=== PATIENT | male | born 1960 | race Caucasian/White ===

== ENCOUNTER 2018-06-19 15:13 | Emergency (ER) | payer SELFPAY ==
[~2018-06-19] VITALS: Ht 177.8 cm; Wt 82.6 kg
[2018-06-19 15:25] VITALS: BP 160/89
[2018-06-19 16:30] LABS: BILIRUBIN,URINE NEGATIVE (NEG); CLARITY,URINE CLEAR; COLOR,URINE YELLOW; NITRITE,URINE NEGATIVE (NEG); PH,URINE 6.5; PROTEIN,URINE NEGATIVE (NEG-TRACE)
[2018-06-19 16:40] LABS: BACTERIA,URINE 0 /HPF (0-FEW); RBC,URINE OCC /HPF (0-2); WBC,URINE OCC /HPF (0-4)
--- NOTE | 2018-06-19 16:42 | RAD ---
PELVIS LIMITED OR FOLLOW UP History: Bilateral hernias Comparison: None. Findings: Multiple sonographic images of the pelvis are submitted. Per technologist, hernia defect was not confidently identified although there was bulging of soft tissues in this region. Impression: 1. Hernia defect was not confidently identified per technologist although bulging of the soft tissues in this region. If there is persistent concern for hernia, CT evaluation could be beneficial. Electronically signed by: Valerio Hawk MD (06/19/2018 4:38 PM) [id number]
--- NOTE | 2018-06-19 16:55 | PHYS DOC ---
Past Medical History Past Medical History: No Pertinent History Past Surgical History: No Surgical History Alcohol Use: Occasionally Drug Use: None Adult General Chief Complaint Chief Complaint: GROIN PAIN HPI HPI Patient is a 58 year old male who presents with bilateral hernias. The patient states that he has had a right hernia for several years. He states that the left hernia is newer, and every time he stands up it pops out. The patient can easily reduce it, but it is painful. The patient was post with surgical follow- up in the surgery but recently moved to [place]. He had already reduce the left hernia before he came into the room. He states that the right is always pouched out but it is not painful. Review of Systems Review of Systems Constitutional: Denies fever or chills [] Eyes: Denies change in visual acuity, redness, or eye pain [] HENT: Denies nasal congestion or sore throat [] Respiratory: Denies cough or shortness of breath [] Cardiovascular: No additional information not addressed in HPI [] GI: See history of present illness : Denies dysuria or hematuria [] Musculoskeletal: Denies back pain or joint pain [] Integument: Denies rash or skin lesions [] Neurologic: Denies headache, focal weakness or sensory changes [] Endocrine: Denies polyuria or polydipsia [] All other systems were reviewed and found to be within normal limits, except as documented in this note. Physical Exam Physical Exam Constitutional: Well developed, well nourished, no acute distress, non-toxic appearance. [] HENT: Normocephalic, atraumatic, bilateral external ears normal, oropharynx moist, no oral exudates, nose normal. [] Eyes: PERRLA, EOMI, conjunctiva normal, no discharge. [] Neck: Normal range of motion, no tenderness, supple, no stridor. [] Cardiovascular:Heart rate regular rhythm, no murmur [] Lungs & Thorax: Bilateral breath sounds clear to auscultation [] Abdomen: Bowel sounds normal, soft, no tenderness, and the right hernia is nontender and non-reducible with a soft mass noted to the right pubis, the left hernia was reduced and is not noted on exam Skin: Warm, dry, no erythema, no rash. [] Neurologic: Alert and oriented X 3, normal motor function, normal sensory function, no focal deficits noted. [] Psychologic: Affect normal, judgement normal, mood normal. [] Current Patient Data Vital Signs Vital Signs Date Time Temp Pulse Resp B/P (MAP) Pulse Ox O2 Delivery O2 Flow Rate FiO2 06/19/18 15:25 97.8 74 18 160/89 (112) 98 97.8 Lab Values Laboratory Tests Test 06/19/18 16:15 Urine Collection Type Unknown Urine Color Yellow Urine Clarity Clear Urine pH 6.5 Urine Specific Harvey 1.020 Urine Protein Negative mg/dL (NEG-TRACE) Urine Glucose (UA) Negative mg/dL (NEG) Urine Ketones (Stick) Negative mg/dL (NEG) Urine Blood Negative (NEG) Urine Nitrite Negative (NEG) Urine Bilirubin Negative (NEG) Urine Urobilinogen Dipstick 1.0 mg/dL (0.2 mg/dL) Urine Leukocyte Esterase Negative (NEG) Urine RBC Occ /HPF (0-2) Urine WBC Occ /HPF (0-4) Urine Bacteria 0 /HPF (0-FEW) Urine Mucus Marked /LPF EKG EKG [] Radiology/Procedures Radiology/Procedures PATIENT: ANTHONY RUTHERFORD ACCOUNT: [id number] : 1960 LOCATION: ER AGE: 58 SEX: M EXAM STATUS: REG ER ORD. PHYSICIAN: MINDY GONCALVES APRN REASON: evaluate bilateral hernias PROCEDURE: PELVIS LIMITED OR FOLLOW UP PELVIS LIMITED OR FOLLOW UP History: Bilateral hernias Comparison: None. Findings: Multiple sonographic images of the pelvis are submitted. Per technologist, hernia defect was not confidently identified although there was bulging of soft tissues in this region. Impression: 1. Hernia defect was not confidently identified per technologist although bulging of the soft tissues in this region. If there is persistent concern for hernia, CT evaluation could be beneficial. Electronically signed by: Hipolito Muñiz MD (06/19/2018 4:38 PM) [id number] DICTATED and SIGNED BY: HIPOLITO MUÑIZ MD DATE: 06/19/18 4211 Course & Med Decision Making Course & Med Decision Making Pertinent Labs and Imaging studies reviewed. (See chart for details) [] Dragon Disclaimer Dragon Disclaimer This electronic medical record was generated, in whole or in part, using a voice recognition dictation system. Departure Departure Impression: Primary Impression: Hernia Disposition: 01 HOME, SELF-CARE Condition: STABLE Referrals: NO PCP (PCP) MARIA L ROSADO MD Patient Instructions: Hernia Additional Instructions: Follow-up with surgery for treatment of your bilateral hernias. If your hernia pouches and you are unable to reduce it return to the emergency department. MINDY GONCALVES SOLAR ENERGY SPECIALIST Jun 19, 2018 16:55
== END 2018-06-19 17:28 | disposition home or self-care (01) ==
LOC: ER 15:13
DX: K46.9 Unspecified abdominal hernia without obstruction or gangrene (principal)
CPT/HCPCS: 76857; 81001; 99285-25

== ENCOUNTER 2018-10-01 06:36 | Day surgery (SDC) | payer SELFPAY ==
[~2018-10-01] VITALS: Ht 177.8 cm; Wt 87.0 kg
[2018-10-01] MEDS ORDERED: BUPIVAC MPF-EPI 0.5%-1:200000 30 ML VIAL. ONE (06:57)
[2018-10-01] MEDS ORDERED: IV RINGERS,LACTATED 1000ML 1,000 ML IV SCH ×2 (07:00)
[2018-10-01] MEDS ORDERED: PROCHLORPERAZINE 10 MG/2 ML VIAL. IV PRN ×2 (07:00)
[2018-10-01] MEDS ORDERED: LIDOCAINE 1% PF 2 ML VIAL. ID PRN ×2 (07:00)
[2018-10-01] MEDS ORDERED: HYDROmorphone 2 MG/ML VIAL IV PRN ×2 (07:00)
[2018-10-01] MEDS ORDERED: MORPHINE SULFATE 2 MG/ML VIAL. IV PRN ×2 (07:00)
[2018-10-01] MEDS ORDERED: fentaNYL PF VIAL 100 MCG/2 ML VIAL IV PRN ×3 (07:00)
[2018-10-01] MEDS ORDERED: ONDANSETRON PF 4 MG/2 ML VIAL. IV PRN ×2 (07:00)
[2018-10-01] MEDS ORDERED: ROCURONIUM 50 MG/5 ML VIAL. ONE (07:25)
[2018-10-01] MEDS ORDERED: fentaNYL PF VIAL 100 MCG/2 ML VIAL ONE (07:25)
[2018-10-01] MEDS ORDERED: ONDANSETRON PF 4 MG/2 ML VIAL. ONE (07:25)
[2018-10-01] MEDS ORDERED: PROPOFOL 20 ML IV ONE (07:25)
[2018-10-01] MEDS ORDERED: LIDOCAINE 2% PF 5 ML VIAL. ONE (07:25)
[2018-10-01] MEDS ORDERED: DEXAMETHASONE SOD PHOS 20 MG/5 ML VIAL. ONE (07:26)
[2018-10-01] MEDS ORDERED: NEOSTIGMINE 10 MG/10 ML VIAL. ONE (07:26)
[2018-10-01] MEDS ORDERED: MIDAZOLAM HCL/PF 2 MG/2 ML VIAL. ONE (07:26)
[2018-10-01] MEDS ORDERED: KETOROLAC 30 MG/ML INJ FOR OR. INJ ONE (07:26)
[2018-10-01] MEDS ORDERED: GLYCOPYRROLATE 1 MG/5 ML VIAL. ONE (07:28)
[2018-10-01] MEDS ORDERED: FAMOTIDINE 20 MG/2 ML VIAL ONE (08:25)
--- NOTE | 2018-10-01 09:01 | PDOC4 ---
Operative Note Operative Note Date: 10/01/2018 Preoperative diagnosis: Bilateral inguinal hernias Postoperative diagnosis: Same Procedure: Robotic-assisted laparoscopic bilateral inguinal hernia repairs with mesh Surgeon: Ernst Specimen: None Dictation: Patient is 58-year-old gentleman with bilateral inguinal hernias comes in for repair. Procedure of robotic-assisted laparoscopic bilateral inguinal repair with mesh was explained to the patient in detail risk benefits were also discussed including bleeding infection injury to intra-abdominal contents possibly necessitate further open operations. Alternatives to this procedure also discussed with the patient is seemed to understand gave both verbal and written consent to the procedure performed. Patient was taken to the operating room placed in supine position general anesthesia was initiated once patient was sleep and intubated he was placed in low lithotomy position and his abdomen was prepped and draped usual sterile fashion using ChloraPrep and area just above the umbilicus was injected with quarter percent Marcaine with epinephrine incision was made with a blade scalpel there is needle was placed within the abdomen. Pneumoperitoneum once this was complete 8mm da Austin port was placed and a 30 da Austin camera was placed within the abdomen which was inspected was noted. 2 hernias right much larger than the left both were incarcerated with bowel. A 8mm da Austin port was placed in the right mid abdomen and one in the mid abdomen the da Austin robot was then brought in and docked all port sites surgeon went to the robotic console using a grasper and Endo Linda scissors the peritoneum was incised on the right side and a window peritoneum was propagated inferiorly with sharp and blunt dissection reducing the hernia sac and contents. A large Bard 3-D max mesh for the right side was placed over the hernia defect and the peritoneum was closed with a running 20 absorbable V lock suture. Tensions are then turned to the left side similarly the peritoneum was incised and window propagated inferiorly with blunt and sharp dissection reducing the hernia sac and contents. A large Bard 3-D max mesh for the left side was placed over the hernia defect and the peritoneum was closed with a running 20V lock absorbable suture. The da Austin robot was undocked all ports removed the pneumoperitoneum was reduced and the port sites were all closed with 40 septic Monocryl Mastisol Steri-Strips and island dressings were applied. Patient was awakened and expanded in operating room taken to recovery in stable condition all sponge instrument needle counts listed as correct estimated blood loss 5 mL MARIA L ROSADO MD Oct 01, 2018 09:01
--- NOTE | 2018-10-01 09:02 | DISCH ---
DISCHARGE INSTRUCTIONS Condition on Discharge Condition on Discharge: Stable Activity After Discharge Activity Instructions for Disc: Avoid exertion Other activity instructions: no lifting more 20 pounds for 2 weeks Diet after Discharge Diet after Discharge: Regular Wound Incision Care Other wound/incision instructi: May shower in 24 hours Contacting the after DC Call your doctor for: If your condition worsens Follow-Up Follow up with: Dr. Rosado in 2 weeks MARIA L ROSADO MD Oct 01, 2018 09:02
[2018-10-01] MEDS: fentaNYL PF VIAL 100 MCG/2 ML VIAL IV PRN ×2 (09:20→09:40)
[2018-10-01] MEDS ORDERED: oxyCODONE/APAP 5/325 1 TAB TABLET PO ONE (09:45)
[2018-10-01] MEDS ORDERED: OXYC-325 PO (09:50)
[2018-10-01 10:38] VITALS: BP 134/86
== END 2018-10-01 10:41 | disposition home or self-care (01) ==
LOC: SURG 06:36
PROVIDERS: ATTEND Surgery
DX: K40.00 Bilateral inguinal hernia, with obstruction, without gangrene, not specified as recurrent (principal); Z98.42 Cataract extraction status, left eye; Z98.41 Cataract extraction status, right eye; Z96.1 Presence of intraocular lens; Z87.891 Personal history of nicotine dependence; Z72.89 Other problems related to lifestyle
CPT/HCPCS: 49650; A7015; C1781; C1782; J0696; J0780; J1100; J1885; J2001; J2250; J2405; J2704; J2710; J3010; J3490; S2900

== ENCOUNTER → 2018-11-18 | Outpatient (CLI) | payer SELFPAY ==
[~2018-11-18] MED LIST: OXYC-325 PO
--- NOTE | 2018-11-18 16:48 | RAD ---
[facility] RIGHT History: Right groin pain and swelling after surgery, lump, history of hernia surgery Findings: Multiple sonographic images of the right groin region are submitted. In the area of the right groin at site of lump, there is avascular collection about 9.4 x 8.1 x 11.3 cm in size. This is somewhat heterogeneous in appearance. Impression: 1. There is nonspecific avascular collection in the right groin, may be a hematoma. Electronically signed by: Valerio Hawk MD (11/18/2018 4:45 PM) [id number]
== END | disposition home or self-care (01) ==
LOC: US 15:47
PROVIDERS: ATTEND Surgery
DX: R19.09 Other intra-abdominal and pelvic swelling, mass and lump (principal)
CPT/HCPCS: 76882